=== PATIENT | female | born 1995 | race Two or more races ===

== ENCOUNTER 2024-08-01 17:47 | Emergency (ER) | payer MEDICAID, OTHER ==
[~2024-08-01] VITALS: Ht 160 cm; Wt 101.1 kg
[2024-08-01] MEDS: KETOROLAC TROMETH 60MG/2ML VIAL IM ONE (20:07)
[2024-08-01] MEDS: ONDANSETRON HCL 4 MG/2 ML VIAL IM ONE (20:31)
[2024-08-01 20:32] LABS: Basophils # (auto) 0.1 10 ^3/uL (0-0.2); Basophils % (auto) 0.7 % (0.0-2.0); Eosinophils # (auto) 0.1 10 ^3/uL (0-0.8); Eosinophils % (auto) 1.1 % (0.0-7.0); Hematocrit 41.4 % (36.0-46.0); Hemoglobin 13.7 g/dL (12.2-16.2); Lymphocytes # (auto) 2.7 10 ^3/uL (0.4-5.4); Lymphocytes % (auto) 22.1 % (10.0-50.0); Mean Corpuscular Hemoglobin 26.8 pg (28.0-32.0); Mean Corpuscular Hgb Conc. 33.1 g/dL (32.0-36.0); Mean Corpuscular Volume 80.9 fL (80.0-100.0); Monocytes # (auto) 0.6 10 ^3/uL (0-1.3); Monocytes % (auto) 4.7 % (0.0-12.0); Neutrophils # (auto) 8.9 10 ^3/uL (1.6-8.6); Neutrophils % (auto) 71.4 % (37.0-80.0); Platelet Count (auto) 351 10^3/uL (140-450); Red Blood Cells 5.12 10^6/uL (4.0-5.20); Red Cell Distribution Width 14.4 % (11.8-14.3); White Blood Cell 12.4 10^3/uL (4.4-10.8)
[2024-08-01 20:50] LABS: Alanine Aminotransferase 20 U/L (7-40); Albumin 4.8 g/dL (3.2-4.8); Alkaline Phosphatase 78 U/L (46-116); Anion Gap 8 (5-15); Aspartate Aminotransferase 16 U/L (13-40); BUN/Creatinine Ratio 12.7 (10.0-20.0); Bilirubin, Total 0.4 mg/dL (0.2-1.0); Blood Urea Nitrogen 10 mg/dL (9-23); Calcium 10.1 mg/dL (8.7-10.4); Carbon Dioxide 25 mmol/L (20-31); Chloride 104 mmol/L (98-107); Glucose 82 mg/dL (74-106); Potassium 4.2 mmol/L (3.5-5.1); Sodium 137 mmol/L (136-145)
--- NOTE | 2024-08-01 21:22 | DVH ---
CLINICAL INDICATION: injury/pain TECHNIQUE: 3 radiographic views of the right knee were obtained. Comparison: None FINDINGS/IMPRESSION: There is no evidence of acute fracture or dislocation. There is protuberance of the tibial tuberosity . Correlate for possible osteochondroma. The visualized joint space is well maintained. The alignment is anatomical. There is no radiopaque foreign body.
--- NOTE | 2024-08-01 21:41 | DVH ---
Exam: CT CT AB PEL WO CON-NO ORAL OR IV History: llq pain Comparison Study: None Technique: Multidetector spiral CT of the abdomen was performed from lung bases to pubic symphysis. Imaging was performed without IV contrast. Axial, coronal and sagittal multiplanar reformats were ob tained from the axial data set by the technologist. Radiation Dose : 1. Abdomen/Pelvis: CTDIvol 17 mGy, DLP 1037 mGy*cm. Findings: Evaluation of solid organs is limited due to lack of intravenous contrast use. Lung Bases: No acute or significant lung base finding. Normal heart size. No pleural or pericardial effusion. Liver: The liver is normal in size. No focal lesions. Gallbladder and Biliary Tree: Gallbladder is surgically absent. Spleen: Unremarkable Pancreas: The pancreas is grossly normal in appearance. Adrenal Glands: Unremarkable Kidneys: Kidneys are grossly normal without calculi or hydronephrosis. Bladder: Grossly unremarkable for degree of distention. Bowel: The stomach is grossly normal in appearance. Small bowel and colon are normal in caliber and d istribution. The appendix is not visualized; however, no secondary findings of acute appendicitis id entified. Ascites: Absent Lymphadenopathy: No mesenteric, retroperitoneal or periportal lymphadenopathy. Abdominal Wall and Mesentery: Unremarkable. Vasculature: The visualized abdominal aorta is normal in size and caliber. Evaluation of abdominal a nd pelvic vessels is limited due to lack of intravenous contrast. Pelvic Organs: Unremarkable Musculoskeletal: No aggressive focal bony lesions, acute fractures or dislocation. IMPRESSION: 1. No acute abdominal or pelvic findings. Radiation optimization: All CT scans at this facility use at least one of these dose optimization humberto hniques: automated exposure control mA and/or kV adjustment per patient size (includes targeted exam s where dose is matched to clinical indication) or iterative reconstruction.
[2024-08-01 21:42] LABS: Total Protein 8.6 g/dL (5.7-8.2)
[2024-08-01 21:45] LABS: Lipase 30 U/L (12-53)
[2024-08-01] MEDS: MORPHINE SULFATE INJ 2 MG/ml SYRG IM ONE (21:48)
[2024-08-01 22:19] VITALS: BP 104/74; PULSE 73; RESP 16; TEMP 98.6; O2SAT 100
--- NOTE | 2024-08-01 23:21 | DVH ---
INDICATION: INJURY/PAIN TECHNIQUE: 3 views of the lumbar spine were obtained. COMPARISON: None FINDINGS: There are no acute fractures or subluxations. Trace levoscoliosis has its apex about the L3 vertebral body. There is otherwise normal alignment of 5 nonrib lumbar vertebral bodies. Moderate to severe L5-S1 disc height loss with minimal adjacent end plate sclerosis. No evidence of fracture or subluxation. Soft tissue elements are normal in appearance. Nonobstructive bowel gas pattern noted. Right upper qu adrant surgical clips noted. IMPRESSION: 1. No acute fracture or subluxation. 2. Moderate to severe L5-S1 disc height loss with adjacent endplate sclerosis.
--- NOTE | 2024-08-02 00:07 | ED.PDOC ---
Leah. trauma (HPI) HPI Comments pt reports slip and fall, hitting back of head, back and right leg. pt denies loc, associated with mild nausea. Chief Complaint: Fall Injury Time Seen by MD: 18:27 Primary Care Provider: none Reviewed notes: Nurses Notes, Medications, Allergies Allergies: Coded Allergies: NO KNOWN ALLERGIES (Unverified , 08/01/24) Information Source: Patient Mode of Arrival: Ambulatory Past Medical History PAST MEDICAL HISTORY: Denies Surgical History: Denies all surgeries ALUMINUM SIDING INSTALLER History: No Pertinent ALUMINUM SIDING INSTALLER History Family History Family History: Unknown Social History Smoker: Non-Smoker Alcohol: Denies ETOH Use Drugs: Denies Drug Use Constitutional: denies: chills, diaphoresis, fatigue, fever, malaise, sweats, weakness, others EENTM: denies: blurred vision, double vision, ear bleeding, ear discharge, ear drainage, ear pain, ear ringing, eye pain, eye redness, hearing loss, mouth pain, mouth swelling, nasal discharge, nose bleeding, nose congestion, nose p ain, photophobia, tearing, throat pain, throat swelling, voice changes, others Respiratory: denies: cough, hemoptysis, orthopnea, SOB at rest, shortness of breath, SOB with excertion, stridor, wheezing, others Cardiovascular: denies: chest pain, dizzy spells, diaphoresis, Dyspnea on exertion, edema, irregular heart beat, left arm pain, lightheadedness, palpitations, PND, syncope, others Gastrointestinal: reports: abdominal pain; denies: abdomen distended, blood streaked bowels, constipated, diarrhea, dysphagia, difficulty swallowing, hematemesis, melena, nausea, poor appetite, poor fluid intake, rectal bleeding, rectal pain, vomiting, others Genitourinary: denies: abnormal vagina bleeding, burning, dyspareunia, dysuria, flank pain, frequency, hematuria, incontinence, pain, , vagina discharge, urgency, others Neurological: denies: dizziness, fainting, headache, left sided numbness, left sided weakness, numbness, paresthesia, pre-existing deficit, right sided numbness, right sided weakness, seizure, speech problems, tingling, tremors, weakness, others Musculoskeletal: reports: back pain, others (RIGHT KNEE PAIN); denies: gout, joint pain, joint swelling, muscle pain, muscle stiffness, neck pain Integumetry: denies: bruises, change in color, change in hair/nails, dryness, laceration, lesions, lumps, rash, wounds, others Allergic/Immunocompromised: denies: Difficulty Healing, Frequent Infections, H susannah, Itching, others Hematologic/Lymphatic: denies: anemia, blood clots, easy bleeding, easy bruising, swollen glands, others Endocrine: denies: excessive hunger, excessive sweating, excessive thirst, excessive urination, flushing, intolerance to cold, intolerance to heat, unexplained weight gain, unexplained weight loss, others Psychiatric: denies: anxiety, bipolar disorder, depression, hopeless, panic disorder, schizophrenia, sleepless, suicidal, others Physical Exam General Appearance: No Apparent Distress, Normal HEENT: Normal ENT Inspection, Pharynx Normal Neck: Full Range of Motion, Non-Tender Respiratory: Chest Non-Tender, Lungs Clear, No Respiratory Distress, Normal Breath Sounds Cardiovascular: No Edema, No JVD, No Murmur, No Gallop, Normal Peripheral Pulses, Regular Rate/Rhythm Breast Exam: Deferred Gastrointestinal: No Organomegaly, Non Tender, No Pulsatile Mass, Normal Bowel Sounds, Soft Genitalia: Deferred Pelvic: Deferred Rectal: Deferred Extremities: Normal capillary refill, Normal inspection, Normal range of motion, Non-tender, No pedal edema Musculoskeletal : Location: Bilateral Extremity Location: Back (10 PALPATED OVER L1 THROUGH L5 PARASPINAL MUSCLES LEFT SIDE GREATER THAN RIGHT NO NOTED CREPITUS OR STEP-OFFS STRENGTH SENSORY MOTION INTACT NEGATIVE STRAIGHT LEG RAISE BILATERAL POSITIVE PEDAL PULSES. 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 Was a procedure done?: No Differential Diagnosis Multiple Trauma: Fractures, Spine Injury, Contusion, Hematoma, Laceration X-Ray, Labs, Meds, VS Vital Signs Date Time Temp Pulse Resp B/P (MAP) Pulse Ox O2 Delivery O2 Flow Rate FiO2 08/01/24 22:19 98.6 73 16 104/74 (84) 100 98.6 08/01/24 22:18 73 16 104/74 08/01/24 21:48 80 16 109/64 08/01/24 21:12 97.5 80 16 109/64 (79) 97 97.5 08/01/24 19:05 98.5 104 18 128/73 (91) 96 98.5 08/01/24 19:05 104 18 96 Room Air 08/01/24 18:04 98.5 104 18 128/73 (91) 96 98.5 Lab Test 08/01/24 20:12 Range/Units White Blood Count 12.4 H 4.4-10.8 10^3/uL Red Blood Count 5.12 4.0-5.20 10^6/uL Hemoglobin 13.7 12.2-16.2 g/dL Hematocrit 41.4 36.0-46.0 % Mean Corpuscular Volume 80.9 80.0-100.0 fL Mean Corpuscular Hemoglobin 26.8 L 28.0-32.0 pg Mean Corpuscular Hemoglobin Concent 33.1 32.0-36.0 g/dL Red Cell Distribution Width 14.4 H 11.8-14.3 % Platelet Count 351 140-450 10^3/uL Mean Platelet Volume 8.2 6.9-10.8 fL Neutrophils (%) (Auto) 71.4 37.0-80.0 % Lymphocytes (%) (Auto) 22.1 10.0-50.0 % Monocytes (%) (Auto) 4.7 0.0-12.0 % Eosinophils (%) (Auto) 1.1 0.0-7.0 % Basophils (%) (Auto) 0.7 0.0-2.0 % Neutrophils # (Auto) 8.9 H 1.6-8.6 10 ^3/uL Lymphocytes # (Auto) 2.7 0.4-5.4 10 ^3/uL Monocytes # (Auto) 0.6 0-1.3 10 ^3/uL Eosinophils # (Auto) 0.1 0-0.8 10 ^3/uL Basophils # (Auto) 0.1 0-0.2 10 ^3/uL Nucleated Red Blood Cells 0.0 % Sodium Level 137 136-145 mmol/L Potassium Level 4.2 3.5-5.1 mmol/L Chloride Level 104 98-107 mmol/L Carbon Dioxide Level 25 20-31 mmol/L Anion Gap 8 5-15 Blood Urea Nitrogen 10 9-23 mg/dL Creatinine 0.79 0.550-1.02 mg/dL Glomerular Filtration Rate Calc 104 >90 mL/min BUN/Creatinine Ratio 12.7 10.0-20.0 Serum Glucose 82 74-106 mg/dL Calcium Level 10.1 8.7-10.4 mg/dL Total Bilirubin 0.4 0.2-1.0 mg/dL Aspartate Amino Transferase (AST) 16 13-40 U/L Alanine Aminotransferase (ALT) 20 7-40 U/L Alkaline Phosphatase 78 46-116 U/L Total Protein 8.6 H 5.7-8.2 g/dL Albumin 4.8 3.2-4.8 g/dL Lipase 30 12-53 U/L X-Ray, Labs, Meds, VS Comment PATIENT GIVEN MORPHINE 1 MG IM, TORADOL 60 MG IM, AND ZOFRAN 4 MG P.O.. REPORTS IMPROVEMENT SYMPTOMS REQUESTING DISCHARGE AT THIS TIME. CT ABDOMEN PELVIS NEGATIVE FOR ACUTE FINDINGS. LUMBAR X-RAY SHOWS NO FRACTURES, OSSEOUS LESIONS, OR SUBLUXATIONS. RIGHT KNEE SHOWS NO DISLOCATION, FRACTURES OR OSSEOUS LESIONS. PATIENT TO FOLLOW UP HER PCP IN 2-3 DAYS CONSIDER FURTHER IMAGING SUCH MRIS IF SYMPTOMS PERSIST. DISCUSSED RETURN ER PRECAUTIONS PATIENT INDICATES UNDERSTANDING AGREES WITH DISCHARGE PLAN OF CARE. Time of 1ST Reevaluation: 00:02 Reevaluation 1ST: Improved Patient Education/Counseling: Diagnosis, Treatment, Prognosis, Need For Follow Up Family Education/Counseling: No Family Present Departure 1 Departure Time of Disposition: 00:05 Impression: Primary Impression: Low back strain Qualified Codes: S39.012A - Strain of muscle, fascia and tendon of lower back, initial encounter Additional Impressions: Abdominal pain Qualified Codes: R10.84 - Generalized abdominal pain Contusion of right knee Qualified Codes: S80.01XA - Contusion of right knee, initial encounter Disposition: HOME / SELF CARE / HOMELESS Condition: Stable Discharged With: Friend Critical Care Note Critical Care Time?: No Stability Stability form required: PATTIE Greenwood Aug 02, 2024 00:07
== END 2024-08-02 00:20 | disposition home or self-care (01) ==
LOC: ER 17:47
DX: S39.012A Strain of muscle, fascia and tendon of lower back, initial encounter (principal); S80.01XA Contusion of right knee, initial encounter; R10.9 Unspecified abdominal pain; W01.198A Fall on same level from slipping, tripping and stumbling with subsequent striking against other object, initial encounter; Y93.89 Activity, other specified; Y92.89 Other specified places as the place of occurrence of the external cause; Y99.8 Other external cause status
CPT/HCPCS: 36415; 72100; 73562; 74176; 80053; 83690; 85025; 96372; 99285; J1885; J2270; J2405

== ENCOUNTER 2024-11-05 17:43 | Emergency (ER) | payer MEDICAID ==
--- NOTE | 2024-11-05 18:03 | ECG ---
[facility] Test Date: 2024-11-05 Test Time: 17:50:26 Pat Name: SCOTTY DAVIS Department: ER Room: Gender: F Director Of Media: MARY : 1995 Requested By: CLAUDIA DE SOUZA Order Number: [id number] Reading MD: Albino Solorzano Measurements Intervals Nixon Rate: 91 P: 48 MS: 168 QRS: 45 QRSD: 89 T: 8 QT: 340 QTc: 419 Interpretive Statements Sinus rhythm Borderline Q waves in inferior leads Electronically Signed On 11-08-2024 20:02:35 PDT by Albino Solorzano Please click the below link to view image of tracing.
[2024-11-05 18:08] LABS: Urine Bacteria None Seen /hpf (None Seen)
[2024-11-05 18:12] LABS: Basophils # (auto) 0.1 10 ^3/uL (0-0.2); Eosinophils # (auto) 0.3 10 ^3/uL (0-0.8); Monocytes # (auto) 0.6 10 ^3/uL (0-1.3); Monocytes % (auto) 5.6 % (0.0-12.0); Nucleated Red Blood Cells % 0.1 %
[2024-11-05 18:14] LABS: Basophils % (auto) 1.1 % (0.0-2.0); Eosinophils % (auto) 2.7 % (0.0-7.0); Hematocrit 40.5 % (36.0-46.0); Hemoglobin 13.8 g/dL (12.2-16.2); Lymphocytes # (auto) 2.9 10 ^3/uL (0.4-5.4); Mean Corpuscular Hemoglobin 27.1 pg (28.0-32.0); Mean Corpuscular Hgb Conc. 34.2 g/dL (32.0-36.0); Mean Corpuscular Volume 79.3 fL (80.0-100.0); Neutrophils # (auto) 6.2 10 ^3/uL (1.6-8.6); Neutrophils % (auto) 61.6 % (37.0-80.0); Platelet Count (auto) 362 10^3/uL (140-450); Red Cell Distribution Width 14.1 % (11.8-14.3)
--- NOTE | 2024-11-05 18:19 | ED.PDOC ---
HPI Comments 29 y/o F, with no prior cardiac history presents to the ED for CC of chest pain. Patient states, she has been experiencing intermittent left sided chest pain onset, yesterday (11/04/24). Patient relays, associated symptoms of of nausea and vomiting with epigastric discomfort. Patient describes pain to be, underneath her breast. Patient denies change in diet, new prescriptions, palpitations, or shortness of breath. No other symptoms or modifying factors present at this time. Chief Complaint: Chest Pain Time Seen by MD: 18:15 Primary Care Provider: NONE Reviewed Notes: Nurses Notes, Medications, Allergies Allergies: Coded Allergies: NO KNOWN ALLERGIES (Unverified , 08/01/24) Information Source: Patient Mode of Arrival: Ambulatory Severity: Moderate Timing: Days Duration: Intermittent Prehospital treatment: None Location: Chest (L) Radiation: No Radiation Quality: Sharp Onset: At Rest Cardiac Risk Factors: None PE Risk Factors: None History of: None Modifying Factors: Nothing Associated Signs and Symptoms: Abdominal Pain, N/V Past Medical History PAST MEDICAL HISTORY: Denies Surgical History: Denies all surgeries HEALTH CARE LAW SPECIALIST History: No Pertinent HEALTH CARE LAW SPECIALIST History Family History Family History: Unknown Social History Smoker: Non-Smoker Alcohol: Denies ETOH Use Drugs: Denies Drug Use Lives In: Home Constitutional: denies: chills, diaphoresis, fatigue, fever, malaise, sweats, weakness, others EENTM: denies: blurred vision, double vision, ear bleeding, ear discharge, ear drainage, ear pain, ear ringing, eye pain, eye redness, hearing loss, mouth pain, mouth swelling, nasal discharge, nose bleeding, nose congestion, nose pain, photophobia, tearing, throat pain, throat swelling, voice changes, others Respiratory: denies: cough, hemoptysis, orthopnea, SOB at rest, shortness of breath, SOB with excertion, stridor, wheezing, others Cardiovascular: reports: chest pain; denies: dizzy spells, diaphoresis, Dyspnea on exertion, edema, irregular heart beat, left arm pain, lightheadedness, palpitations, PND, syncope, others Gastrointestinal: reports: abdominal pain, nausea, vomiting; denies: abdomen distended, blood streaked bowels, constipated, diarrhea, dysphagia, difficulty swallowing, hematemesis, melena, poor appetite, poor fluid intake, rectal bleeding, rectal pain, others Genitourinary: denies: abnormal vagina bleeding, burning, dyspareunia, dysuria, flank pain, frequency, hematuria, incontinence, pain, , vagina discharge, urgency, others Neurological: denies: dizziness, fainting, headache, left sided numbness, left sided weakness, numbness, paresthesia, pre-existing deficit, right sided numbness, right sided weakness, seizure, speech problems, tingling, tremors, weakness, others Musculoskeletal: denies: back pain, gout, joint pain, joint swelling, muscle pain, muscle stiffness, neck pain, others Integumetry: denies: bruises, change in color, change in hair/nails, dryness, laceration, lesions, lumps, rash, wounds, others Allergic/Immunocompromised: denies: Difficulty Healing, Frequent Infections, Hives, Itching, others Hematologic/Lymphatic: denies: anemia, blood clots, easy bleeding, easy bruising, swollen glands, others Endocrine: denies: excessive hunger, excessive sweating, excessive thirst, excessive urination, flushing, intolerance to cold, intolerance to heat, unexplained weight gain, unexplained weight loss, others Psychiatric: denies: anxiety, bipolar disorder, depression, hopeless, panic disorder, schizophrenia, sleepless, suicidal, others All Other Systems: Reviewed and Negative Physical Exam General Appearance: No Apparent Distress, Normal HEENT: Normal ENT Inspection, Pharynx Normal, TMs Normal Neck: Full Range of Motion, Non-Tender, Normal, Normal Inspection Respiratory: Chest Non-Tender, Lungs Clear, No Accessory Muscle Use, No Respiratory Distress, Normal Breath Sounds Cardiovascular: No Edema, No JVD, No Murmur, No Gallop, Normal Peripheral Pulses, Regular Rate/Rhythm Breast Exam: Deferred Gastrointestinal: No Organomegaly, Non Tender, No Pulsatile Mass, Normal Bowel Sounds, Soft Genitalia: Deferred Pelvic: Deferred Rectal: Deferred Extremities: No calf tenderness, Normal capillary refill, Normal inspection, Normal range of motion, Non-tender, No pedal edema Musculoskeletal : Apperance: Normal 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 Was a procedure done?: No CP Differential Dx Differential Diagnosis: Anxiety / Panic Attack Differential Diagnosis: Chest Wall Pain, Costochondritis, Esophageal reflux/spasm, Gastritis, Pneumonia X-Ray, Labs, Meds, VS Vital Signs Date Time Temp Pulse Resp B/P (MAP) Pulse Ox O2 Delivery O2 Flow Rate FiO2 11/05/24 17:50 91 11/05/24 17:45 98.1 93 18 121/62 (81) 100 98.1 Lab Test 11/05/24 19:00 11/05/24 18:02 11/05/24 17:54 Range/Units Troponin I High Sensitivity < 3 L < 3 L </=34 ng/L White Blood Count 10.0 4.4-10.8 10^3/uL Red Blood Count 5.10 4.0-5.20 10^6/uL Hemoglobin 13.8 12.2-16.2 g/dL Hematocrit 40.5 36.0-46.0 % Mean Corpuscular Volume 79.3 L 80.0-100.0 fL Mean Corpuscular Hemoglobin 27.1 L 28.0-32.0 pg Mean Corpuscular Hemoglobin Concent 34.2 32.0-36.0 g/dL Red Cell Distribution Width 14.1 11.8-14.3 % Platelet Count 362 140-450 10^3/uL Mean Platelet Volume 8.4 6.9-10.8 fL Neutrophils (%) (Auto) 61.6 37.0-80.0 % Lymphocytes (%) (Auto) 29.0 10.0-50.0 % Monocytes (%) (Auto) 5.6 0.0-12.0 % Eosinophils (%) (Auto) 2.7 0.0-7.0 % Basophils (%) (Auto) 1.1 0.0-2.0 % Neutrophils # (Auto) 6.2 1.6-8.6 10 ^3/uL Lymphocytes # (Auto) 2.9 0.4-5.4 10 ^3/uL Monocytes # (Auto) 0.6 0-1.3 10 ^3/uL Eosinophils # (Auto) 0.3 0-0.8 10 ^3/uL Basophils # (Auto) 0.1 0-0.2 10 ^3/uL Nucleated Red Blood Cells 0.1 % Sodium Level 138 136-145 mmol/L Potassium Level 4.1 3.5-5.1 mmol/L Chloride Level 105 98-107 mmol/L Carbon Dioxide Level 25 20-31 mmol/L Anion Gap 8 5-15 Blood Urea Nitrogen 12 9-23 mg/dL Creatinine 0.77 0.550-1.02 mg/dL Glomerular Filtration Rate Calc 108 >90 mL/min BUN/Creatinine Ratio 15.6 10.0-20.0 Serum Glucose 93 74-106 mg/dL Calcium Level 9.3 8.7-10.4 mg/dL Lipase 29 12-53 U/L Urine Color Yellow Yellow Urine Clarity Turbid H Clear Urine pH 5.0 5.0-9.0 Urine Specific Slaughters 1.028 1.001-1.035 Urine Protein Negative Negative Urine Ketones Negative Negative Urine Blood Trace H Negative /uL Urine Nitrite Negative Negative Urine Bilirubin Negative Negative Urine Urobilinogen Normal Negative mg/dL Urine Leukocyte Esterase 2+ Negative /uL Urine RBC 2 0 - 4 /hpf Urine Microscopic WBC 6 H 0-5 /HPF Urine Squamous Epithelial Cells Mod <5 /hpf Urine Bacteria None seen None Seen /hpf Urine Mucus Few None Seen Urine Glucose Normal Normal mg/dL Urine Test Negative Negative X-Ray, Labs, Meds, VS Comment Imaging: X-rays and CT scans were reviewed and interpreted by this provider, imaging shows no fractures and no pathological disease. Pending radiology review. Laboratory: Labs reviewed and interpreted by this provider. Patient has blood and leukocytes in her urine. With GI symptoms. Concerned for possible urinary tract infection, patient be treated with Macrobid. Patient has prior medical visits reviewed. Med reconciliation performed Vital signs reviewed Time of 1ST Reevaluation: 18:45 Reevaluation 1ST: Unchanged Patient Education/Counseling: Diagnosis, Treatment, Need For Follow Up (Follow up in the emergency department in the next 24-48 hours if symptoms worsen. It was advised to follow up with your primary care doctor in the next 3-4 days for further evaluation.) Family Education/Counseling: No Family Present SEPSIS Sepsis Screen Date sepsis recognized/suspect: Nov 05, 2024 Time Sepsis recognized/suspect: 1744 Recent Procedure: No On Antibiotic Therapy: No Respiratory Rate >20: No Heart Rate >90: Yes Temp<36 C (96.8 F) or >38.3 C: No SBP <90 or MAP <65 mmHG: No New Acute Mental Status Change: No Is the patient on CPAP, BIPAP,: No Physician Orders Ct Ab Pel Wo Con-No Oral Or Iv (11/05/24 17:59) Chest Xray 1 View (11/05/24 17:59) Troponin-I Hs (11/05/24 20:59) Vital Signs Date Time Temp Pulse Resp B/P (MAP) Pulse Ox O2 Delivery O2 Flow Rate FiO2 11/05/24 17:50 91 11/05/24 17:45 98.1 93 18 121/62 (81) 100 98.1 Laboratory Tests Test 11/05/24 18:02 White Blood Count 10.0 10^3/uL (4.4-10.8) Departure 1 Departure Time of Disposition: 19:47 Impression: Primary Impression: Urinary tract infection Qualified Codes: N30.00 - Acute cystitis without hematuria Additional Impression: Chest wall pain Disposition: HOME / SELF CARE / HOMELESS Condition: Fair e-Prescriptions Nitrofurantoin Monohydrate Mac (Macrobid) 100 Mg Cap 100 MG PO BID for 7 Days, #14 CAP Prov: CLAUDIA DE SOUZA 11/05/24 Discharged With: Self Critical Care Note Critical Care Time?: No Stability Stability form required: No Heart Score Heart Score: Heart Score Response (Comments) Value History N/A 0 EKG N/A 0 Age N/A 0 Risk Factors N/A 0 Troponin N/A 0 Total 0 I personally scribed for CLAUDIA DE SOUZA ([email or web address]) on 11/05/24 at 18:19. Electronically submitted by Rakel Reddy ([email or web address]). CLAUDIA DE SOUZA Nov 05, 2024 18:19
[2024-11-05 18:21] LABS: Chloride 105 mmol/L (98-107); Potassium 4.1 mmol/L (3.5-5.1); Sodium 138 mmol/L (136-145)
[2024-11-05 18:22] LABS: Anion Gap 8 (5-15); Calcium 9.3 mg/dL (8.7-10.4); Carbon Dioxide 25 mmol/L (20-31)
[2024-11-05 18:23] LABS: Urine Blood TRACE /uL (Negative); Urine Clarity Turbid (Clear); Urine Color Yellow (Yellow); Urine Mucus FEW (None Seen); Urine Protein, UAD Negative (Negative); Urine Specific Gravity 1.028 (1.001-1.035); Urine Squamous Epithelial Cell MOD /hpf (<5); Urine Urobilinogen Normal (Negative); Urine WBC 6 /HPF (0-5)
[2024-11-05 18:27] LABS: BUN/Creatinine Ratio 15.6 (10.0-20.0); Blood Urea Nitrogen 12 mg/dL (9-23); Glucose 93 mg/dL (74-106)
[2024-11-05 18:28] LABS: Lipase 29 U/L (12-53)
--- NOTE | 2024-11-05 19:03 | DVH ---
Exam: CT CT AB PEL WO CON-NO ORAL OR IV History: abd pain Comparison Study: CT CT AB PEL WO CON-NO ORAL OR IV on DOS: 08/01/24 Technique: Multidetector spiral CT of the abdomen was performed from lung bases to pubic symphysis. Imaging was performed without IV contrast. Axial, coronal and sagittal multiplanar reformats were ob tained from the axial data set by the technologist. Radiation Dose : 1. Abdomen/Pelvis: CTDIvol 26.75 mGy, DLP 1511.1 mGy*cm. Findings: Evaluation of solid organs is limited due to lack of intravenous contrast use. Lung Bases: No acute or significant lung base finding. Normal heart size. No pleural or pericardial effusion. Liver: The liver is normal in size. No focal lesions. Gallbladder and Biliary Tree: Gallbladder is surgically absent. Spleen: Unremarkable Pancreas: The pancreas is grossly normal in appearance. Adrenal Glands: Unremarkable Kidneys: Kidneys are grossly normal without calculi or hydronephrosis. Bladder: Grossly unremarkable for degree of distention. Bowel: The stomach is grossly normal in appearance. Small bowel and colon are normal in caliber and d istribution. The appendix is not visualized; however, no secondary findings of acute appendicitis id entified. Ascites: Absent Lymphadenopathy: No mesenteric, retroperitoneal or periportal lymphadenopathy. Abdominal Wall and Mesentery: Unremarkable. Vasculature: The visualized abdominal aorta is normal in size and caliber. Evaluation of abdominal a nd pelvic vessels is limited due to lack of intravenous contrast. Pelvic Organs: Unremarkable Musculoskeletal: No aggressive focal bony lesions, acute fractures or dislocation. IMPRESSION: 1. No acute abdominal or pelvic findings. Radiation optimization: All CT scans at this facility use at least one of these dose optimization humberto hniques: automated exposure control mA and/or kV adjustment per patient size (includes targeted exam s where dose is matched to clinical indication) or iterative reconstruction.
--- NOTE | 2024-11-05 19:04 | DVH ---
EXAMINATION: Chest x-ray 1 view CLINICAL HISTORY: cp COMPARISON: None FINDINGS: No dominant consolidations in the visualized lung story. The costophrenic angles appear clear. No s izable pleural effusion or pneumothorax. The cardiomediastinal silhouette appears within normal limit s given technique. IMPRESSION: No acute cardiopulmonary findings as visualized.
[2024-11-05] MEDS ORDERED: NITR-87 PO (19:48)
[2024-11-05 20:13] VITALS: BP 115/60; PULSE 85; RESP 18; TEMP 97.8; O2SAT 98
[2024-11-05] MEDS: KETOROLAC TROMETH 30 MG/ML 1ML VIAL IV ONE (20:34)
[2024-11-05] MEDS: ONDANSETRON ODT 4 MG TAB PO ONE (20:34)
== END 2024-11-05 21:08 | disposition home or self-care (01) ==
LOC: ER 17:43
DX: N39.0 Urinary tract infection, site not specified (principal); R07.89 Other chest pain
CPT/HCPCS: 36415; 71045; 74176; 80048; 81001; 81025; 83690; 84484; 85025; 93005; 96374; 99285; J1885; Q0162

== ENCOUNTER 2024-11-15 22:41 | Emergency (ER) | payer MEDICAID ==
[~2024-11-15] VITALS: Ht 160 cm; Wt 100.7 kg
[~2024-11-15 22:41] MED LIST: NITR-87 PO
[2024-11-15] MEDS: ONDANSETRON HCL 4 MG/2 ML VIAL IM ONE (23:56)
[2024-11-15] MEDS: HYDROcodone-ACET 10/325MG TAB PO ONE (23:56)
[2024-11-15] MEDS: KETOROLAC TROMETH 60MG/2ML VIAL IM ONE (23:56)
[2024-11-15 23:59] LABS: Urine Protein, UAD Negative (Negative)
--- NOTE | 2024-11-16 00:07 | ED.PDOC ---
General HPI Comments This patient is a severely morbidly obese 29-year-old female who came to ER for flank pain concerns. Patient has been having intermittent episodes of aching right flank pains, nonradiating, associated nausea and vomiting for the past 3 days. Denies any urinary symptoms such as dysuria or gross hematuria. Denies any fever. Denies any history of intra-abdominal concerns or musculoskeletal issues. Vital signs were stable on arrival. Chief Complaint: Flank Pain Time Seen by MD: 00:06 Primary Care Provider: NONE Reviewed notes: Nurses Notes Allergies: Coded Allergies: Sulfamethoxazole w/Trimethoprim (Verified Allergy, Unknown, 11/15/24) Home Meds Active Scripts Nitrofurantoin Monohydrate Mac (Macrobid) 100 Mg Cap, 100 MG PO BID for 7 Days, #14 CAP Prov:CLAUDIA DE SOUZA 11/05/24 Information Source: Patient Mode of Arrival: Ambulatory Severity: Moderate Inability to void: Mild Timing: Days Duration: Intermittent Has not urinated for: Minutes Prehospital treatment: None Onset: Spontaneous Symptoms: None History of: None Location: (R) Flank associated signs and symptoms: Nausea, Vomiting, Flank Pain Past Medical History PAST MEDICAL HISTORY: Denies Surgical History: Denies all surgeries CARD SCRAPER History: No Pertinent CARD SCRAPER History Family History Family History: Reviewed,noncontributory to illness Social History Smoker: Non-Smoker Alcohol: Denies ETOH Use Drugs: Denies Drug Use Lives In: Home Constitutional: denies: chills, diaphoresis, fatigue, fever, malaise, sweats, weakness, others EENTM: denies: blurred vision, double vision, ear bleeding, ear discharge, ear drainage, ear pain, ear ringing, eye pain, eye redness, hearing loss, mouth pain, mouth swelling, nasal discharge, nose bleeding, nose congestion, nose pain, photophobia, tearing, throat pain, throat swelling, voice changes, others Respiratory: denies: cough, hemoptysis, orthopnea, SOB at rest, shortness of breath, SOB with excertion, stridor, wheezing, others Cardiovascular: denies: chest pain, dizzy spells, diaphoresis, Dyspnea on exertion, edema, irregular heart beat, left arm pain, lightheadedness, palpitations, PND, syncope, others Gastrointestinal: reports: nausea, vomiting; denies: abdomen distended, abdominal pain, blood streaked bowels, constipated, diarrhea, dysphagia, difficulty swallowing, hematemesis, melena, poor appetite, poor fluid intake, rectal bleeding, rectal pain, others Genitourinary: reports: flank pain (Right); denies: abnormal vagina bleeding, burning, dyspareunia, dysuria, frequency, hematuria, incontinence, pain, , vagina discharge, urgency, others Neurological: denies: dizziness, fainting, headache, left sided numbness, left sided weakness, numbness, paresthesia, pre-existing deficit, right sided numbness, right sided weakness, seizure, speech problems, tingling, tremors, weakness, others Musculoskeletal: denies: back pain, gout, joint pain, joint swelling, muscle pain, muscle stiffness, neck pain, others Integumetry: denies: bruises, change in color, change in hair/nails, dryness, laceration, lesions, lumps, rash, wounds, others Allergic/Immunocompromised: denies: Difficulty Healing, Frequent Infections, Hives, Itching, others Hematologic/Lymphatic: denies: anemia, blood clots, easy bleeding, easy bruising, swollen glands, others Endocrine: denies: excessive hunger, excessive sweating, excessive thirst, excessive urination, flushing, intolerance to cold, intolerance to heat, unexplained weight gain, unexplained weight loss, others Psychiatric: denies: anxiety, bipolar disorder, depression, hopeless, panic disorder, schizophrenia, sleepless, suicidal, others Physical Exam General Appearance: Moderate Distress (Moderate distress due to flank pain and nausea concerns.), Normal HEENT: Normal ENT Inspection, Pharynx Normal, TMs Normal Neck: Full Range of Motion, Non-Tender, Normal, Normal Inspection Respiratory: Chest Non-Tender, Lungs Clear, No Accessory Muscle Use, No Respiratory Distress, Normal Breath Sounds Cardiovascular: No Edema, No JVD, No Murmur, No Gallop, Normal Peripheral Pul ses, Regular Rate/Rhythm Breast Exam: Deferred Gastrointestinal: No Pulsatile Mass, Normal Bowel Sounds, Soft, Tenderness (Diffuse right-sided pain extending from the flank region into the abdomen. Difficult to assess due to body habitus. No definitive CVA tenderness.) Genitalia: Deferred Pelvic: Deferred Rectal: Deferred Extremities: No calf tenderness, Normal capillary refill, Normal inspection, Normal range of motion, Non-tender, No pedal edema Musculoskeletal : Apperance: Normal Neurologic: Alert, No Motor Deficits, Normal Affect, Normal Mood, No Sensory Deficits Cerebellar Function: Normal Reflexes: Normal Skin: Dry, Normal Color, Warm Lymphatic: No Adenopathy Was a procedure done? Was a procedure done?: No Differential Diagnosis Kidney stone (Female): Musculoskeletal pain, Pancreatitis, Pyelonephritis, Renal failure, Strain, Urinary obstruction, Urolithiasis Urinary Problem (Female): Pyelonephritis, Urinary retention, Urolithiasis, UTI X-Ray, Labs, Meds, VS Vital Signs Date Time Temp Pulse Resp B/P (MAP) Pulse Ox O2 Delivery O2 Flow Rate FiO2 11/16/24 02:11 57 17 134/81 11/16/24 01:00 98.6 57 17 134/81 (98) 100 98.6 11/15/24 23:50 98.6 86 18 129/74 (92) 100 98.6 11/15/24 23:50 Room Air* 0 21 11/15/24 23:25 98.6 86 18 129/74 (92) 100 98.6 Lab Test 11/15/24 23:48 Range/Units Urine Color Light-yellow Yellow Urine Clarity Clear Clear Urine pH 6.0 5.0-9.0 Urine Specific [place] 1.029 1.001-1.035 Urine Protein Negative Negative Urine Ketones Negative Negative Urine Blood Trace H Negative /uL Urine Nitrite Negative Negative Urine Bilirubin Negative Negative Urine Urobilinogen Normal Negative mg/dL Urine Leukocyte Esterase Trace Negative /uL Urine RBC 5 0 - 4 /hpf Urine Microscopic WBC 2 0-5 /HPF Urine Squamous Epithelial Cells Few <5 /hpf Urine Bacteria None seen None Seen /hpf Urine Mucus Few None Seen Urine Glucose Normal Normal mg/dL Urine Test Negative Negative Current Medications Medications (Trade) Dose Ordered Sig/Arlene Route Start Time Stop Time Status Last Admin Ketorolac Tromethamine (Toradol Injection) 30 mg ONCE ONCE IM 11/15/24 23:45 11/15/24 23:46 DC 11/15/24 23:56 Acetaminophen/ Hydrocodone Bitart (Sabin 10/325MG Tab) 1 tab ONCE ONCE PO 11/15/24 23:45 11/15/24 23:46 DC 11/15/24 23:56 Ondansetron HCl (Zofran) 4 mg ONCE ONCE IM 11/15/24 23:45 11/15/24 23:46 DC 11/15/24 23:56 Metoclopramide HCl (Reglan Injection) 10 mg ONCE ONCE IM 11/16/24 02:00 11/16/24 02:01 DC 11/16/24 02:11 Hydromorphone HCl (Dilaudid Injection) 1 mg ONCE ONCE IM 11/16/24 02:00 11/16/24 02:01 DC 11/16/24 02:11 X-Ray, Labs, Meds, VS Comment All studies performed in the ED were evaluated by me personally. Urinalysis was unremarkable for any urinary tract concerns. CT of the abdomen and pelvis was unremarkable for any acute abnormality. Mild hepatosplenomegaly was noted. Advised patient to utilize medication as needed and additionally, follow up with the primary care provider if symptoms continue. Time of 1ST Reevaluation: 02:24 Reevaluation 1ST: Improved Consultation: PCP, GI Patient Education/Counseling: Diagnosis, Treatment Family Education/Counseling: Diagnosis, Treatment, No Family Present SEPSIS Sepsis Screen Date sepsis recognized/suspect: Nov 15, 2024 Time Sepsis recognized/suspect: 2320 Recent Procedure: No On Antibiotic Therapy: No Respiratory Rate >20: No Heart Rate >90: No Temp<36 C (96.8 F) or >38.3 C: No SBP <90 or MAP <65 mmHG: No New Acute Mental Status Change: No Is the patient on CPAP, BIPAP,: No Physician Orders Ct Ab Pel Wo Con-No Oral Or Iv (11/15/24 23:40) Vital Signs Date Time Temp Pulse Resp B/P (MAP) Pulse Ox O2 Delivery O2 Flow Rate FiO2 11/16/24 02:11 57 17 134/81 11/16/24 01:00 98.6 57 17 134/81 (98) 100 98.6 11/15/24 23:50 98.6 86 18 129/74 (92) 100 98.6 11/15/24 23:50 Room Air* 0 21 11/15/24 23:25 98.6 86 18 129/74 (92) 100 98.6 Medications Medications Dose Ordered Sig/Arlene Route Start Time Stop Time Status Last Admin Dose Admin Acetaminophen/ Hydrocodone Bitart 1 tab ONCE ONCE PO 11/15/24 23:45 11/15/24 23:46 DC 11/15/24 23:56 Hydromorphone HCl 1 mg ONCE ONCE IM 11/16/24 02:00 11/16/24 02:01 MO 11/16/24 02:11 Ketorolac Tromethamine 30 mg ONCE ONCE IM 11/15/24 23:45 11/15/24 23:46 MO 11/15/24 23:56 Metoclopramide HCl 10 mg ONCE ONCE IM 11/16/24 02:00 11/16/24 02:01 MO 11/16/24 02:11 Ondansetron HCl 4 mg ONCE ONCE IM 11/15/24 23:45 11/15/24 23:46 MO 11/15/24 23:56 Departure 1 Departure Time of Disposition: 02:24 Impression: Primary Impression: Flank pain Disposition: HOME / SELF CARE / HOMELESS Condition: Stable Additional Instructions: Advised pain medication as needed for symptomatic relief as well as good hydration and healthy nutrition throughout. If symptoms continue, patient should follow up with the primary care provider for re-evaluation. e-Prescriptions Metoclopramide Hcl (Reglan) 10 Mg Tab 10 MG PO Q8HP PRN, #15 TAB Prov: ELENI FELIZ PAC 11/16/24 Ibuprofen Micronized (Ibuprofen) 800 Mg Tab 800 MG PO Q8HP PRN, #20 TAB Prov: ELENI FELIZ PAC 11/16/24 Discharged With: Self, Friend Critical Care Note Critical Care Time?: No Stability Stability form required: No Heart Score Heart Score: Heart Score Response (Comments) Value History N/A 0 EKG N/A 0 Age N/A 0 Risk Factors N/A 0 Troponin N/A 0 Total 0 I personally scribed for ELENI FELIZ PAC ([email or web address]) on 11/16/24 at 00:06. Electronically submitted by Isaiah Poole ([email or web address]). ELENI FELIZ PAC Nov 16, 2024 00:06
[2024-11-16 01:00] VITALS: TEMP 98.6
--- NOTE | 2024-11-16 01:59 | DVH ---
CLINICAL HISTORY: Right-sided flank pain TECHNIQUE: CT of the abdomen and pelvis was performed without intravenous contrast. This exam was per formed according to our departmental dose optimization program. Up-to-date CT equipment and radiation dose reduction techniques are utilized as appropriate. CTDI: 16.21 + 0.14 DLP: 1000.02 WID: COMPARISON: CT CT AB PEL WO CON-NO ORAL OR IV on DOS: 11/05/24, FINDINGS: Lower Thorax: Unremarkable. Liver and Biliary system: Mild hepatomegaly measuring 19 cm craniocaudal. Prior cholecystectomy. No d efinite hepatic lesion. No biliary ductal dilatation. Spleen: Mild splenomegaly. Adrenal Glands and Kidneys: Unremarkable. Pancreas and Retroperitoneum: Unremarkable. Aorta and Major Vessels: Unremarkable. Bowel, Mesentery and Peritoneal space: Unremarkable. Pelvis: Unremarkable. Abdominal wall and Osseous Structures: Minor Multilevel lower thoracic and lumbar spondylosis. No emilia tructive osseous lesion. IMPRESSION: No noncontrast evidence of acute abnormality. Mild hepatosplenomegaly.
[2024-11-16] MEDS: METOCLOPRAMIDE HCL 5MG/ml INJ 2ml VIAL IM ONE (02:11)
[2024-11-16] MEDS: HYDROmorphone HCL 2 MG/ML VL/or syr IM ONE (02:11)
[2024-11-16] MEDS ORDERED: IBUP-1455 PO (02:26)
[2024-11-16] MEDS ORDERED: METO-281 PO (02:26)
[2024-11-16 02:30] VITALS: BP 138/76; PULSE 56; RESP 16; O2SAT 100
== END 2024-11-16 02:32 | disposition home or self-care (01) ==
LOC: ER 22:41
DX: R10.31 Right lower quadrant pain (principal); E66.01 Morbid (severe) obesity due to excess calories; Z88.2 Allergy status to sulfonamides; Z88.1 Allergy status to other antibiotic agents; Z79.899 Other long term (current) drug therapy; Z68.39 Body mass index [BMI] 39.0-39.9, adult
CPT/HCPCS: 74176; 81001; 81025; 96372; 99285; J1171; J1885; J2405; J2765

== ENCOUNTER 2024-12-09 14:30 | Emergency (ER) | payer MEDICAID ==
[~2024-12-09] VITALS: Ht 152.4 cm; Wt 100.3 kg
[~2024-12-09 14:30] MED LIST changes: +IBUP-1455 PO; +METO-281 PO
--- NOTE | 2024-12-09 14:46 | ED.PDOC ---
General HPI Comments 29-year-old female presents to the ED for the chief complaint of lumbosacral paraspinal back pain with the associated nausea vomiting and dizziness. Patient states that her pain started three days ago, after her last menstrual cycle patient states that she finished her last menstrual cycle before the pain began. Patient states that she was having a very heavy period and was passing clots. Patient states she was vomiting due to the pain. Denies history of chronic steroid use or history of osteoporosis Denies history of cancer Denies fevers chills night sweats nausea vomiting unintentional weight loss Denies abdominal tearing pain Denies syncope Denies urinary changes or urinary incontinence Denies numbness tingling of the groin her inner thigh Denies previous back procedures or surgeries Chief Complaint: Back Pain Time Seen by MD: 14:42 Primary Care Provider: NONE Reviewed notes: Nurses Notes, Medications, Allergies Allergies: Coded Allergies: Sulfamethoxazole w/Trimethoprim (Verified Allergy, Unknown, 11/15/24) Home Meds Active Scripts Ondansetron HCl (Ondansetron) 4 Mg Tab, 4 MG PO Q8HP PRN for 2 Days, #6 TAB 0 Refills Prov:DALLAS BLOUNT NP 12/09/24 Lidocaine (LIDODERM 5% TOPICAL PATCH) 1 Patch Ph, 1 PATCH TOP DAILY for 30 Days, #30 PATCH 0 Refills Prov:DALLAS BLOUNT NP 12/09/24 Methocarbamol (Methocarbamol) 500 Mg Tab, 500 MG PO Q8HP PRN for 10 Days, #30 TAB 0 Refills Prov:DALLAS BLOUNT NP 12/09/24 Ibuprofen (Ibuprofen) 600 Mg Tab, 1 TAB PO TID for 10 Days, #30 TAB 0 Refills Prov:DALLAS BLOUNT NP 12/09/24 Metoclopramide Hcl (Reglan) 10 Mg Tab, 10 MG PO Q8HP PRN, #15 TAB Prov:ELENI FELIZ PAC 11/16/24 Ibuprofen Micronized (Ibuprofen) 800 Mg Tab, 800 MG PO Q8HP PRN, #20 TAB Prov:ELENI FELIZ PAC 11/16/24 Nitrofurantoin Monohydrate Mac (Macrobid) 100 Mg Cap, 100 MG PO BID for 7 Days, #14 CAP Prov:CLAUDIA DE SOUZA 6/25/25 Information Source: Patient Mode of Arrival: Ambulatory Severity: Moderate Inability to void: Moderate Timing: Days Duration: Intermittent, Days Has not urinated for: Hours Prehospital treatment: None Onset: Other Symptoms: None History of: None Location: Other (Mid spine) Modifying factors: None associated signs and symptoms: Nausea, Vomiting Past Medical History PAST MEDICAL HISTORY: Denies Surgical History: Denies all surgeries CUSTOMS INSPECTOR History: No Pertinent CUSTOMS INSPECTOR History Family History Family History: Reviewed,noncontributory to illness Social History Smoker: Non-Smoker Alcohol: Denies ETOH Use Drugs: Denies Drug Use Lives In: Home Constitutional: denies: chills, diaphoresis, fatigue, fever, malaise, sweats, weakness, others EENTM: denies: blurred vision, double vision, ear bleeding, ear discharge, ear drainage, ear pain, ear ringing, eye pain, eye redness, hearing loss, mouth pain, mouth swelling, nasal discharge, nose bleeding, nose congestion, nose pain, photophobia, tearing, throat pain, throat swelling, voice changes, others Respiratory: denies: cough, hemoptysis, orthopnea, SOB at rest, shortness of breath, SOB with excertion, stridor, wheezing, others Cardiovascular: denies: chest pain, dizzy spells, diaphoresis, Dyspnea on exertion, edema, irregular heart beat, left arm pain, lightheadedness, palpitations, PND, syncope, others Gastrointestinal: denies: abdomen distended, abdominal pain, blood streaked bowels, constipated, diarrhea, dysphagia, difficulty swallowing, hematemesis, melena, nausea, poor appetite, poor fluid intake, rectal bleeding, rectal pain, vomiting, others Genitourinary: denies: abnormal vagina bleeding, burning, dyspareunia, dysuria, flank pain, frequency, hematuria, incontinence, pain, , vagina discharge, urgency, others Neurological: denies: dizziness, fainting, headache, left sided numbness, left sided weakness, numbness, paresthesia, pre-existing deficit, right sided numbness, right sided weakness, seizure, speech problems, tingling, tremors, weakness, others Musculoskeletal: reports: back pain; denies: gout, joint pain, joint swelling, muscle pain, muscle stiffness, neck pain, others Integumetry: denies: bruises, change in color, change in hair/nails, dryness, laceration, lesions, lumps, rash, wounds, others Allergic/Immunocompromised: denies: Difficulty Healing, Frequent Infections, Hives, Itching, others Hematologic/Lymphatic: denies: anemia, blood clots, easy bleeding, easy bruising, swollen glands, others Endocrine: denies: excessive hunger, excessive sweating, excessive thirst, excessive urination, flushing, intolerance to cold, intolerance to heat, unexplained weight gain, unexplained weight loss, others Psychiatric: denies: anxiety, bipolar disorder, depression, hopeless, panic disorder, schizophrenia, sleepless, suicidal, others All Other Systems: Reviewed and Negative Physical Exam General Appearance: Mild Distress, Normal HEENT: Normal ENT Inspection, Pharynx Normal, TMs Normal Neck: Full Range of Motion, Non-Tender, Normal, Normal Inspection Respiratory: Chest Non-Tender, Lungs Clear, No Accessory Muscle Use, No Respiratory Distress, Normal Breath Sounds Cardiovascular: No Edema, No JVD, No Murmur, No Gallop, Normal Peripheral Pulses, Regular Rate/Rhythm Breast Exam: Deferred Gastrointestinal: No Organomegaly, Non Tender, No Pulsatile Mass, Normal Bowel Sounds, Soft Genitalia: Deferred Pelvic: Deferred Rectal: Deferred Extremities: No calf tenderness, Normal capillary refill, Normal inspection, Normal range of motion, Non-tender, No pedal edema Musculoskeletal : Location: Bilateral Extremity Location: Back (No gross abnormality, no step-offs, left paraspinal back pain, no TTP, neurovascular by sensitivity intact, no ecchymosis, no signs of trauma) Apperance: Normal Neurologic: Alert, crm marketing analyst II-XII nml as Tested, No Motor Deficits, Normal Affect, Normal Mood, No Sensory Deficits Cerebellar Function: Normal Reflexes: Normal Skin: Dry, Normal Color, Warm Lymphatic: No Adenopathy Was a procedure done? Was a procedure done?: No Differential Diagnosis Kidney stone (Female): , Appendicitis, Bowel obstruction, Cholelithiasis, Ectopic , Musculoskeletal pain, Ovarian torsion, Pancreatitis, Urinary obstruction, Urolithiasis Urinary Problem (Female): Appendicitis, Aortic dissection, Ectopic , Impaction, Intrauterine , Pyelonephritis, Urinary retention, Urolithiasis, UTI, Vaginitis X-Ray, Labs, Meds, VS Vital Signs Date Time Temp Pulse Resp B/P (MAP) Pulse Ox O2 Delivery O2 Flow Rate FiO2 7/29/25 14:32 98.2 76 16 134/52 99 98.2 Lab Test 12/09/24 15:08 Range/Units White Blood Count 9.3 4.4-10.8 10^3/uL Red Blood Count 4.73 4.0-5.20 10^6/uL Hemoglobin 13.0 12.2-16.2 g/dL Hematocrit 37.9 36.0-46.0 % Mean Corpuscular Volume 80.1 80.0-100.0 fL Mean Corpuscular Hemoglobin 27.5 L 28.0-32.0 pg Mean Corpuscular Hemoglobin Concent 34.3 32.0-36.0 g/dL Red Cell Distribution Width 14.0 11.8-14.3 % Platelet Count 348 140-450 10^3/uL Mean Platelet Volume 8.1 6.9-10.8 fL Neutrophils (%) (Auto) 58.1 37.0-80.0 % Lymphocytes (%) (Auto) 31.9 10.0-50.0 % Monocytes (%) (Auto) 5.0 0.0-12.0 % Eosinophils (%) (Auto) 4.0 0.0-7.0 % Basophils (%) (Auto) 1.0 0.0-2.0 % Neutrophils # (Auto) 5.4 1.6-8.6 10 ^3/uL Lymphocytes # (Auto) 3.0 0.4-5.4 10 ^3/uL Monocytes # (Auto) 0.5 0-1.3 10 ^3/uL Eosinophils # (Auto) 0.4 0-0.8 10 ^3/uL Basophils # (Auto) 0.1 0-0.2 10 ^3/uL Nucleated Red Blood Cells 0.0 % Urine Color Yellow Yellow Urine Clarity Clear Clear Urine pH 5.5 5.0-9.0 Urine Specific [place] 1.037 H 1.001-1.035 Urine Protein Trace H Negative Urine Ketones Negative Negative Urine Blood 2+ H Negative /uL Urine Nitrite Negative Negative Urine Bilirubin Negative Negative Urine Urobilinogen Normal Negative mg/dL Urine Leukocyte Esterase 1+ Negative /uL Urine RBC 4 0 - 4 /hpf Urine Microscopic WBC 7 H 0-5 /HPF Urine Squamous Epithelial Cells Few <5 /hpf Urine Bacteria None seen None Seen /hpf Urine Mucus Few None Seen Urine Glucose Normal Normal mg/dL Urine Test Negative Negative Sodium Level 140 136-145 mmol/L Potassium Level 3.9 3.5-5.1 mmol/L Chloride Level 106 98-107 mmol/L Carbon Dioxide Level 27 20-31 mmol/L Anion Gap 7 5-15 Blood Urea Nitrogen 11 9-23 mg/dL Creatinine 0.68 0.550-1.02 mg/dL Glomerular Filtration Rate Calc 122 >90 mL/min BUN/Creatinine Ratio 16.2 10.0-20.0 Serum Glucose 90 74-106 mg/dL Calcium Level 9.1 8.7-10.4 mg/dL Lipase 30 12-53 U/L X-Ray, Labs, Meds, VS Comment 29-year-old female presents to the ED for the chief complaint of lumbosacral paraspinal back pain with the associated nausea vomiting and dizziness. Patient arrives alert and oriented, ABC's intact, afebrile, vital signs stable, saturating well in room air CBC was ordered to exclude anemia, blood loss, or infection. BMP was ordered to exclude electrolyte abnormalities, renal failure, dehydration, hyperglycemia Urinalysis was ordered to rule out UTI or hematuria, . Lipase test was ordered: Kidney ultrasound was ordered to rule out any renal failure, kidney stones: Diagnostic imaging ordered by me and results interpreted by radiology :Impression: No sonographic evidence for hydronephrosis. Labs in the ED showed UA and CBC were unremarkable, test was negative. Patient was given:_. Tolerated medications with no adverse reaction. On reevaluation, patient had symptomatic improvement. Patient is stable for discharge at this time. External notes reviewed. Test results and diagnostic imaging interpreted. All diagnostic findings, discharge care, education and instructions provided Follow-up with PCP in 2 to 3 days Patient verbalized understanding and agreed to treatment plan Vital signs stable, afebrile, no acute distress noted Patient ambulatory with strong steady gait Advised to return precautions for any new or worsening symptoms, return to ER immediately for re-evaluation Patient is aware that the purpose of this visit was for an acute medical emergency requiring emergent stabilization. Chronic conditions, including malignancies have not been ruled out. Patient is instructed to follow up with PCP as directed and discharge instructions for continued care and workup. If unable to arrange follow-up, patient is to return to the emergency department for reassessment. Patient (parent or legal guardian if applicable) was given verbal and written discharge instructions and acknowledges understanding. Additional MDM Review of External, Non-ED records: External records reviewed. Discussion with independent historian (EMS, family) history obtained from the patient/parents (if applicable) at bedside Chronic conditions affecting care: None Social determinants of health affecting care: None Time of 1ST Reevaluation: 15:13 Reevaluation 1ST: Unchanged Patient Education/Counseling: Diagnosis, Treatment, Need For Follow Up Family Education/Counseling: No Family Present SEPSIS Sepsis Screen Date sepsis recognized/suspect: Dec 09, 2024 Time Sepsis recognized/suspect: 1430 Recent Procedure: No On Antibiotic Therapy: No Respiratory Rate >20: No Heart Rate >90: No Temp<36 C (96.8 F) or >38.3 C: No SBP <90 or MAP <65 mmHG: No New Acute Mental Status Change: No Is the patient on CPAP, BIPAP,: No Physician Orders Kidney (12/09/24 15:02) Ketorolac Injection (Toradol Injection) (12/09/24 16:30) Ondansetron Po (Zofran Po) (12/09/24 16:30) Methylprednisolone Sod Succ (Solu Medrol (12/09/24 16:30) Vital Signs Date Time Temp Pulse Resp B/P (MAP) Pulse Ox O2 Delivery O2 Flow Rate FiO2 12/09/24 14:32 98.2 76 16 134/52 99 98.2 Laboratory Tests Test 12/09/24 15:08 White Blood Count 9.3 10^3/uL (4.4-10.8) Departure 1 Departure Time of Disposition: 16:24 Impression: Primary Impression: Lumbar back pain Disposition: 01 HOME / SELF CARE / HOMELESS Condition: Stable e-Prescriptions Ondansetron HCl (Ondansetron) 4 Mg Tab 4 MG PO Q8HP PRN for 2 Days, #6 TAB 0 Refills Prov: DALLAS BLOUNT SENIOR BACK END JAVA DEVELOPER 12/09/24 Lidocaine (LIDODERM 5% TOPICAL PATCH) 1 Patch Ph 1 PATCH TOP DAILY for 30 Days, #30 PATCH 0 Refills Prov: DALLAS BLOUNT SENIOR BACK END JAVA DEVELOPER 12/09/24 Methocarbamol (Methocarbamol) 500 Mg Tab 500 MG PO Q8HP PRN for 10 Days, #30 TAB 0 Refills Prov: DALLAS BLOUNT NP 12/09/24 Ibuprofen (Ibuprofen) 600 Mg Tab 1 TAB PO TID for 10 Days, #30 TAB 0 Refills Prov: DALLAS BLOUNT SENIOR BACK END JAVA DEVELOPER 12/09/24 Critical Care Note Critical Care Time?: No Stability Stability form required: No Heart Score Heart Score: Heart Score Response (Comments) Value History N/A 0 EKG N/A 0 Age N/A 0 Risk Factors N/A 0 Troponin N/A 0 Total 0 I personally scribed for BETHANY BLOUNTAndre Guillen SENIOR BACK END JAVA DEVELOPER ([email or web address]) on 12/09/24 at 14:46. Electronically submitted by Antione Hayward ([email or web address]). I personally scribed for MINEDALLAS F SENIOR BACK END JAVA DEVELOPER ([email or web address]) on 12/09/24 at 15:03. Electronically submitted by Antione Hayward ([email or web address]). I personally scribed for DALLAS BLOUNT F SENIOR BACK END JAVA DEVELOPER ([email or web address]) on 12/09/24 at 15:05. Electronically submitted by Antione Hayward ([email or web address]). I personally scribed for DALLAS BLOUNT SENIOR BACK END JAVA DEVELOPER ([email or web address]) on 12/09/24 at 16:08. Electronically submitted by Antione Hayward ([email or web address]). I personally scribed for DALLAS BLOUNT SENIOR BACK END JAVA DEVELOPER ([email or web address]) on 12/09/24 at 16:33. Electronically submitted by Antione Hayward ([email or web address]). DALLAS BLOUNT SENIOR BACK END JAVA DEVELOPER Dec 09, 2024 14:46
[2024-12-09 15:29] LABS: Hematocrit 37.9 % (36.0-46.0); Hemoglobin 13.0 g/dL (12.2-16.2); Mean Corpuscular Hemoglobin 27.5 pg (28.0-32.0); Mean Corpuscular Volume 80.1 fL (80.0-100.0); Nucleated Red Blood Cells % 0.0 %
[2024-12-09 15:33] LABS: Chloride 106 mmol/L (98-107); Potassium 3.9 mmol/L (3.5-5.1); Sodium 140 mmol/L (136-145)
[2024-12-09 15:34] LABS: Anion Gap 7 (5-15); Carbon Dioxide 27 mmol/L (20-31)
[2024-12-09 15:35] LABS: Calcium 9.1 mg/dL (8.7-10.4)
[2024-12-09 15:39] LABS: BUN/Creatinine Ratio 16.2 (10.0-20.0); Blood Urea Nitrogen 11 mg/dL (9-23); Glucose 90 mg/dL (74-106)
[2024-12-09 15:40] LABS: Lipase 30 U/L (12-53)
--- NOTE | 2024-12-09 15:53 | DVH ---
RENAL ULTRASOUND History: R/o stones Comparison: None Technique: Multiple real-time sonographic images of the kidney and bladder were obtained in conjuncti on with Doppler imaging. Findings: The right kidney measures 9.4 cm and demonstrates no evidence of hydronephrosis, perinephric fluid co llection, or shadowing stone. The left kidney measures 9.4 cm and demonstrates no evidence of hydronephrosis, perinephric fluid col lection, or shadowing stone. Urinary bladder: Decompressed by Early catheter. Impression: No sonographic evidence for hydronephrosis.
[2024-12-09 16:11] LABS: Urine Protein, UAD TRACE (Negative)
[2024-12-09] MEDS ORDERED: IBUP-1454 PO (16:25)
[2024-12-09] MEDS ORDERED: LIDO5DIS21 TOP (16:25)
[2024-12-09] MEDS ORDERED: METH-1181 PO (16:25)
[2024-12-09] MEDS ORDERED: ONDA-155 PO (16:25)
[2024-12-09] MEDS: KETOROLAC TROMETH 60MG/2ML VIAL IM ONE (16:49)
[2024-12-09] MEDS: methylPREDNISolone SOD SUCC 125 MG/2 ML VL IM ONE (16:50)
[2024-12-09] MEDS: ONDANSETRON ODT 4 MG TAB PO ONE (16:50)
[2024-12-09 16:58] VITALS: BP 143/71; PULSE 67; RESP 16; TEMP 98.8; O2SAT 97
== END 2024-12-09 17:13 | disposition home or self-care (01) ==
LOC: ER 14:30
DX: M54.50 Low back pain, unspecified (principal); R42 Dizziness and giddiness; R11.2 Nausea with vomiting, unspecified; Z88.2 Allergy status to sulfonamides
CPT/HCPCS: 36415; 76775; 80048; 81001; 81025; 83690; 85025; 96372; 99285; J1885; Q0162

== ENCOUNTER 2025-01-30 17:33 | Emergency (ER) | payer MEDICAID ==
[~2025-01-30] VITALS: Ht 160 cm; Wt 99.1 kg
[~2025-01-30 17:33] MED LIST changes: +IBUP-1454 PO; +LIDO5DIS21 TOP; +METH-1181 PO; +ONDA-155 PO
[2025-01-30 18:46] VITALS: TEMP 98.2
[2025-01-30] MEDS: SODIUM CHLORIDE 0.9% 1,000 ML IV ONE (19:18)
[2025-01-30] MEDS: ONDANSETRON HCL 4 MG/2 ML VIAL IV ONE ×2 (19:22→21:57)
[2025-01-30] MEDS: KETOROLAC TROMETH 30 MG/ML 1ML VIAL IV ONE (19:22)
[2025-01-30 19:29] LABS: Hematocrit 40.7 % (36.0-46.0); Hemoglobin 13.8 g/dL (12.2-16.2); Mean Corpuscular Hemoglobin 27.0 pg (28.0-32.0); Mean Corpuscular Volume 79.9 fL (80.0-100.0); Nucleated Red Blood Cells % 0.0 %
[2025-01-30 19:34] LABS: COVID19 ANTIGEN SOFIA FIA NEGATIVE (NEGATIVE)
[2025-01-30 19:47] LABS: Alanine Aminotransferase 22 U/L (7-40); Albumin 4.6 g/dL (3.2-4.8); Alkaline Phosphatase 76 U/L (46-116); Anion Gap 8 (5-15); BUN/Creatinine Ratio 10.0 (10.0-20.0); Calcium 9.5 mg/dL (8.7-10.4); Carbon Dioxide 27 mmol/L (20-31); Chloride 103 mmol/L (98-107); Glucose 80 mg/dL (74-106); Potassium 4.1 mmol/L (3.5-5.1); Sodium 138 mmol/L (136-145)
[2025-01-30 19:48] LABS: Bilirubin, Total 0.3 mg/dL (0.2-1.0); Blood Urea Nitrogen 8 mg/dL (9-23); Total Protein 8.4 g/dL (5.7-8.2)
[2025-01-30 20:00] VITALS: O2SAT 98
[2025-01-30 20:20] LABS: Urine Protein, UAD Negative (Negative)
[2025-01-30] MEDS ORDERED: NABU-74 PO (20:57)
[2025-01-30] MEDS ORDERED: ZOFR4T PO (20:57)
--- NOTE | 2025-01-30 20:59 | ED.PDOC ---
GI ASSESSMENT HPI Comments 30-year-old female PRESENTED TO THE ER WITH C.C OF N/V AND GEN WEAK FOR 4 DAYS. PATIENT REPORTS CHILLS BUT NO RECORDED FEVERS. SHE NOTES NO DIARRHEA REPORTS NO RECENT TRAVEL OR KNOWN ILL CONTACTS DOES NOTE VAGUE HEADACHE. DENIES COUGH, DIFFICULTY BREATHING, SHORTNESS BREATH, CHEST PAIN, DIARRHEA, VISION CHANGES, SLURRED SPEECH, NUMBNESS OR WEAKNESS. Chief Complaint: Nausea/Vomiting Time Seen by MD: 18:35 Primary Care Provider: NONE Reviewed Notes: Nurses Notes, Medications, Allergies Allergies: Coded Allergies: Sulfamethoxazole w/Trimethoprim (Verified Allergy, Unknown, 11/15/24) Home Meds Active Scripts Nabumetone (Nabumetone) 750 Mg Tab, 1 TAB PO BID PRN for 5 Days, #10 TAB Prov:PATTIE VELAZQUEZ [facility] 01/30/25 Ondansetron Odt 4MG Tab (ZOFRAN PO) 4 Mg Tb, 4 MG PO TID PRN for 5 Days, #15 TAB ODT TAB-DISSOLVE IN MOUTH, THEN SWALLOW Prov:PATTIE VELAZQUEZP 01/30/25 Ondansetron HCl (Ondansetron) 4 Mg Tab, 4 MG PO Q8HP PRN for 2 Days, #6 TAB 0 Refills Prov:DALLAS BLOUNT NP 12/09/24 Lidocaine (LIDODERM 5% TOPICAL PATCH) 1 Patch Ph, 1 PATCH TOP DAILY for 30 Days, #30 PATCH 0 Refills Prov:DALLAS BLOUNT PIANO PROFESSOR 12/09/24 Methocarbamol (Methocarbamol) 500 Mg Tab, 500 MG PO Q8HP PRN for 10 Days, #30 TAB 0 Refills Prov:DALLAS BLOUNT NP 12/09/24 Ibuprofen (Ibuprofen) 600 Mg Tab, 1 TAB PO TID for 10 Days, #30 TAB 0 Refills Prov:DALLAS BLOUNT NP 12/09/24 Metoclopramide Hcl (Reglan) 10 Mg Tab, 10 MG PO Q8HP PRN, #15 TAB Prov:ELENI FELIZ PAC 11/16/24 Ibuprofen Micronized (Ibuprofen) 800 Mg Tab, 800 MG PO Q8HP PRN, #20 TAB Prov:ELENI FELIZ PAC 11/16/24 Nitrofurantoin Monohydrate Mac (Macrobid) 100 Mg Cap, 100 MG PO BID for 7 Days, #14 CAP Prov:CLAUDIA DE SOUZA 11/05/24 Mode of Arrival: Ambulatory Past Medical History PAST MEDICAL HISTORY: Denies Surgical History: Denies all surgeries REHABILITATION ATTENDANT History: No Pertinent REHABILITATION ATTENDANT History Family History Family History: Reviewed,noncontributory to illness Social History Smoker: Non-Smoker Alcohol: Denies ETOH Use Drugs: Denies Drug Use Lives In: Home All Other Systems: Reviewed and Negative (SEE HPI) Physical Exam General Appearance: No Apparent Distress, Normal HEENT: Normal ENT Inspection, Pharyngeal Erythema Neck: Full Range of Motion, Non-Tender Respiratory: Lungs Clear, No Respiratory Distress, Normal Breath Sounds Cardiovascular: No Edema, No JVD, No Murmur, No Gallop, Normal Peripheral Pulses, Regular Rate/Rhythm Breast Exam: Deferred Gastrointestinal: No Organomegaly, Non Tender, No Pulsatile Mass, Normal Bowel Sounds, Soft Genitalia: Deferred Pelvic: Deferred Rectal: Deferred Extremities: Normal capillary refill, Normal range of motion, Non-tender, No pedal edema Musculoskeletal : Apperance: Normal Neurologic: Alert, No Motor Deficits, Normal Affect, Normal Mood, No Sensory Deficits Cerebellar Function: Normal Reflexes: NOT DONE Skin: Dry, Normal Color, Warm Lymphatic: No Adenopathy Was a procedure done? Was a procedure done?: No GI differential Dx Differential Diagnosis: Gastritis/PUD, Gastroenteritis, UTI, Urolithiasis, Dehy dration, Diabetes/ DKA, Electrolyte Imbalance, Food Poisoning, , Bacterial, Viral X-Ray, Labs, Meds, VS Vital Signs Date Time Temp Pulse Resp B/P (MAP) Pulse Ox O2 Delivery O2 Flow Rate FiO2 01/30/25 22:35 72 18 112/78 01/30/25 22:05 75 18 128/76 01/30/25 20:00 98 Room Air* 0 21 01/30/25 20:00 76 18 110/88 (95) 98 01/30/25 18:46 98.2 83 16 132/84 (100) 100 98.2 01/30/25 17:38 98.4 86 16 131/72 98 98.4 Lab Test 01/30/25 19:13 01/30/25 00:00 Range/Units White Blood Count 10.4 4.4-10.8 10^3/uL Red Blood Count 5.10 4.0-5.20 10^6/uL Hemoglobin 13.8 12.2-16.2 g/dL Hematocrit 40.7 36.0-46.0 % Mean Corpuscular Volume 79.9 L 80.0-100.0 fL Mean Corpuscular Hemoglobin 27.0 L 28.0-32.0 pg Mean Corpuscular Hemoglobin Concent 33.8 32.0-36.0 g/dL Red Cell Distribution Width 14.1 11.8-14.3 % Platelet Count 357 140-450 10^3/uL Mean Platelet Volume 8.2 6.9-10.8 fL Neutrophils (%) (Auto) 68.3 37.0-80.0 % Lymphocytes (%) (Auto) 24.0 10.0-50.0 % Monocytes (%) (Auto) 4.7 0.0-12.0 % Eosinophils (%) (Auto) 2.8 0.0-7.0 % Basophils (%) (Auto) 0.2 0.0-2.0 % Neutrophils # (Auto) 7.1 1.6-8.6 10 ^3/uL Lymphocytes # (Auto) 2.5 0.4-5.4 10 ^3/uL Monocytes # (Auto) 0.5 0-1.3 10 ^3/uL Eosinophils # (Auto) 0.3 0-0.8 10 ^3/uL Basophils # (Auto) 0 0-0.2 10 ^3/uL Nucleated Red Blood Cells 0.0 % Sodium Level 138 136-145 mmol/L Potassium Level 4.1 3.5-5.1 mmol/L Chloride Level 103 98-107 mmol/L Carbon Dioxide Level 27 20-31 mmol/L Anion Gap 8 5-15 Blood Urea Nitrogen 8 L 9-23 mg/dL Creatinine 0.80 0.550-1.02 mg/dL Glomerular Filtration Rate Calc 102 >90 mL/min BUN/Creatinine Ratio 10.0 10.0-20.0 Serum Glucose 80 74-106 mg/dL Calcium Level 9.5 8.7-10.4 mg/dL Total Bilirubin 0.3 0.2-1.0 mg/dL Aspartate Amino Transferase (AST) 21 13-40 U/L Alanine Aminotransferase (ALT) 22 7-40 U/L Alkaline Phosphatase 76 46-116 U/L Total Protein 8.4 H 5.7-8.2 g/dL Albumin 4.6 3.2-4.8 g/dL Urine Color Light-yellow Yellow Urine Clarity Clear Clear Urine pH 6.5 5.0-9.0 Urine Specific [place] 1.019 1.001-1.035 Urine Protein Negative Negative Urine Ketones Negative Negative Urine Blood Negative Negative /uL Urine Nitrite Negative Negative Urine Bilirubin Negative Negative Urine Urobilinogen Normal Negative mg/dL Urine Leukocyte Esterase Negative Negative /uL Urine RBC 1 0 - 4 /hpf Urine Microscopic WBC 1 0-5 /HPF Urine Squamous Epithelial Cells Mod <5 /hpf Urine Bacteria None seen None Seen /hpf Urine Glucose Normal Normal mg/dL Urine Test Negative Negative SARS-CoV-2 Antigen (Rapid) Negative NEGATIVE Current Medications Medications (Trade) Dose Ordered Sig/Arlene Route Start Time Stop Time Status Last Admin Sodium Chloride 1,000 ml @ 1,000 mls/hr Q1H ONCE IV 01/30/25 19:15 01/30/25 20:14 DC 01/30/25 19:18 Ondansetron HCl (Zofran) 4 mg ONCE ONCE IV 01/30/25 19:15 01/30/25 19:16 DC 01/30/25 19:22 Ketorolac Tromethamine (Toradol Injection) 30 mg ONCE ONCE IV 01/30/25 19:15 01/30/25 19:16 DC 01/30/25 19:22 Morphine Sulfate 1 mg ONCE ONCE IV 01/30/25 21:30 01/30/25 21:31 DC 01/30/25 22:05 Ondansetron HCl (Zofran) 4 mg ONCE ONCE IV 01/30/25 21:45 01/30/25 21:46 DC 01/30/25 21:57 X-Ray, Labs, Meds, VS Comment CBC, CMP, and UA without abnormal findings. COVID-19 swab negative, negative. Patient was given 1 L bolus of normal saline, Toradol 30 mg IV, Zofran 8 mg IV push, and morphine 1 mg IV push reports improvement in pain and function requesting discharge at this time. Script trial of Zofran advised take medication as prescribed side effects discussed. Advised to follow up with her PCP in 2-3 days as necessary ER return precautions given patient indicates understanding and agrees with discharge plan of care. Time of 1ST Reevaluation: 18:35 Reevaluation 1ST: Unchanged Time of 2ND Reevaluation: 20:56 Reevaluation 2ND: Improved Patient Education/Counseling: Diagnosis, Treatment, Need For Follow Up Family Education/Counseling: Diagnosis, Treatment, Need For Follow Up SEPSIS Sepsis Screen Date sepsis recognized/suspect: Jan 30, 2025 Time Sepsis recognized/suspect: 1739 Recent Procedure: No On Antibiotic Therapy: No Respiratory Rate >20: No Heart Rate >90: No Temp<36 C (96.8 F) or >38.3 C: No SBP <90 or MAP <65 mmHG: No New Acute Mental Status Change: No Is the patient on CPAP, BIPAP,: No Vital Signs Date Time Temp Pulse Resp B/P (MAP) Pulse Ox O2 Delivery O2 Flow Rate FiO2 01/30/25 22:35 72 18 112/78 01/30/25 22:05 75 18 128/76 01/30/25 20:00 98 Room Air* 0 21 01/30/25 20:00 76 18 110/88 (95) 98 01/30/25 18:46 98.2 83 16 132/84 (100) 100 98.2 01/30/25 17:38 98.4 86 16 131/72 98 98.4 Laboratory Tests Test 01/30/25 19:13 White Blood Count 10.4 10^3/uL (4.4-10.8) Medications Medications Dose Ordered Sig/Arlene Route Start Time Stop Time Status Last Admin Dose Admin Ketorolac Tromethamine 30 mg ONCE ONCE IV 01/30/25 19:15 01/30/25 19:16 DC 01/30/25 19:22 Morphine Sulfate 1 mg ONCE ONCE IV 01/30/25 21:30 01/30/25 21:31 DC 01/30/25 22:05 Ondansetron HCl 4 mg ONCE ONCE IV 01/30/25 19:15 01/30/25 19:16 DC 01/30/25 19:22 Ondansetron HCl 4 mg ONCE ONCE IV 01/30/25 21:45 01/30/25 21:46 DC 01/30/25 21:57 Sodium Chloride 1,000 ml @ 1,000 mls/hr Q1H ONCE IV 01/30/25 19:15 01/30/25 20:14 DC 01/30/25 19:18 Departure 1 Departure Time of Disposition: 20:56 Impression: Primary Impression: Viral syndrome Disposition: HOME / SELF CARE / HOMELESS Condition: Stable e-Prescriptions Nabumetone (Nabumetone) 750 Mg Tab 1 TAB PO BID PRN for 5 Days, #10 TAB Prov: PATTIE VELAZQUEZP 01/30/25 Ondansetron Odt 4MG Tab (ZOFRAN PO) 4 Mg Tb 4 MG PO TID PRN for 5 Days, #15 TAB ODT TAB-DISSOLVE IN MOUTH, THEN SWALLOW Prov: PATTIE VELAZQUEZ [facility] 01/30/25 Discharged With: Self Critical Care Note Critical Care Time?: No Stability Stability form required: No PATTIE VELAZQUEZ [facility] Jan 30, 2025 20:59
[2025-01-30] MEDS ORDERED: HYDROcodone-ACET 5/325MG TAB PO ONE (21:15)
[2025-01-30] MEDS ORDERED: METOCLOPRAMIDE HCL 5MG/ml INJ 2ml VIAL IV ONE (21:30)
[2025-01-30] MEDS: MORPHINE SULFATE INJ 2 MG/ml SYRG IV ONE (22:05)
[2025-01-30 22:35] VITALS: BP 112/78; PULSE 72; RESP 18
== END 2025-01-30 22:44 | disposition home or self-care (01) ==
LOC: ER 17:33
DX: B34.9 Viral infection, unspecified (principal); Z20.822 Contact with and (suspected) exposure to COVID-19; Z88.1 Allergy status to other antibiotic agents; Z88.2 Allergy status to sulfonamides
CPT/HCPCS: 36415; 80053; 81001; 81025; 85025; 87426; 96361; 96374; 96375; 96376; 99285; J1885; J2270; J2405; J7030

== ENCOUNTER 2025-02-13 17:31 | Emergency (ER) | payer MEDICAID ==
[~2025-02-13] VITALS: Ht 160 cm; Wt 97.7 kg
--- NOTE | 2025-02-13 19:18 | DVH ---
CLINICAL INDICATION: s/p fall injury TECHNIQUE: 3 x-ray views of the left ankle. Comparison: None FINDINGS/IMPRESSION: There is no evidence of acute fracture or dislocation. Mild soft tissue swelling around the ankle.
--- NOTE | 2025-02-13 19:19 | DVH ---
INDICATION: s/p fall injury TECHNIQUE: 3 views of the lumbar spine were obtained. COMPARISON: XY LUMBAR SPINE 3 VIEW on DOS: 08/01/24 FINDINGS: There are no acute fractures or subluxations. Status post cholecystectomy. IMPRESSION: 1. No acute fracture or subluxation.
--- NOTE | 2025-02-13 19:22 | DVH ---
CLINICAL INDICATION: s/p fall injury TECHNIQUE: 3 radiographic views of the right knee were obtained. Comparison: XR KNEE COMPLETE LT on DOS: 12/20/24, XY R KNEE 3V XRAY on DOS: 08/01/24 FINDINGS/IMPRESSION: There is no evidence of acute fracture or dislocation. Bony protuberance of the tibial tuberosity. The visualized joint space is well maintained. The alignment is anatomical. 5 mm density within the soft tissue anterior to the proximal tibia which may represent Nonspecific so ft tissue Calcification .
--- NOTE | 2025-02-13 19:42 | ED.PDOC ---
History of Present Illness HPI Comments 30 y/o obese F presents with c/c of left ankle, right knee, and lower back pain s/p mechanical fall and injury. Patient endorses on slipping on water, earlier, and falling and injuring herself. Pain is a 6/10 in severity and is described as pressure-like and stabbing in quality. No reported lost of consciousness. No modifiers. No endorsement of any pertinent medical or surgical history. Denial of any numbness, weakness, deformity, swelling, or further associated symptoms. Chief Complaint: Fall Injury Time Seen by MD: 19:00 Primary Care Provider: NONE Reviewed Notes: Nurses Notes, Medications, Allergies Allergies: Coded Allergies: Ibuprofen (Verified Allergy, Unknown, 02/13/25) Sulfamethoxazole w/Trimethoprim (Verified Allergy, Unknown, 11/15/24) Home Meds Active Scripts Ondansetron HCl (Ondansetron) 4 Mg Tab, 4 MG PO Q8HP PRN for 2 Days, #6 TAB 0 Refills Prov:DALLAS BLOUNT RIPENING ROOM OPERATOR 12/09/24 Lidocaine (LIDODERM 5% TOPICAL PATCH) 1 Patch Ph, 1 PATCH TOP DAILY for 30 Days, #30 PATCH 0 Refills Prov:DALLAS BLOUNT RIPENING ROOM OPERATOR 12/09/24 Methocarbamol (Methocarbamol) 500 Mg Tab, 500 MG PO Q8HP PRN for 10 Days, #30 TAB 0 Refills Prov:DALLAS BLOUNT RIPENING ROOM OPERATOR 12/09/24 Ibuprofen (Ibuprofen) 600 Mg Tab, 1 TAB PO TID for 10 Days, #30 TAB 0 Refills Prov:DALLAS BLOUNT RIPENING ROOM OPERATOR 12/09/24 Metoclopramide Hcl (Reglan) 10 Mg Tab, 10 MG PO Q8HP PRN, #15 TAB Prov:ELENI FELIZ PAC 11/16/24 Ibuprofen Micronized (Ibuprofen) 800 Mg Tab, 800 MG PO Q8HP PRN, #20 TAB Prov:ELENI FELIZ PAC 11/16/24 Nitrofurantoin Monohydrate Mac (Macrobid) 100 Mg Cap, 100 MG PO BID for 7 Days, #14 CAP Prov:CLAUDIA DE SOUZA INTERPRETER DEAF 11/05/24 Information Source: Patient Mode of Arrival: Ambulatory Severity: Moderate Timing: Hours Duration: Since onset Prehospital treatment: None Past Medical History PAST MEDICAL HISTORY: Denies Surgical History: Denies all surgeries ROASTER OPERATOR History: No Pertinent ROASTER OPERATOR History Family History Family History: Reviewed,noncontributory to illness Social History Smoker: Non-Smoker Alcohol: Denies ETOH Use Drugs: Denies Drug Use Lives In: Home All Other Systems: Reviewed and Negative (Comprehensive review of systems are n egative unless stated in HPI) Physical Exam General Appearance: No Apparent Distress, Normal HEENT: Pharynx Normal Neck: Full Range of Motion, Non-Tender Respiratory: Lungs Clear, No Respiratory Distress, Normal Breath Sounds Cardiovascular: No Murmur, Normal Peripheral Pulses, Regular Rate/Rhythm Breast Exam: Deferred Gastrointestinal: Non Tender, Soft Genitalia: Deferred Pelvic: Deferred Rectal: Deferred Extremities: Normal capillary refill, Normal range of motion Musculoskeletal : Location: Left Extremity Location: Ankle (moderate lateral edema. +CSM ) Apperance: Normal Neurologic: Alert, No Motor Deficits, Normal Affect, Normal Mood, No Sensory Deficits Cerebellar Function: Normal Reflexes: NOT DONE Skin: Dry, Normal Color, Warm Lymphatic: No Adenopathy Was a procedure done? Was a procedure done?: No Differential Dx Considerations may include: fracture, contusions, sprain, among others X-Ray, Labs, Meds, VS Vital Signs Date Time Temp Pulse Resp B/P (MAP) Pulse Ox O2 Delivery O2 Flow Rate FiO2 02/13/25 20:30 98 16 98 Room Air 02/13/25 20:30 98.3 81 16 111/64 (80) 98 98.3 02/13/25 17:44 98.5 98 16 126/68 95 98.5 [place] [address] Ph: [phone] DIAGNOSTIC IMAGING Diagnostic Imaging Report : [id number] Signed PATIENT: SCOTTY DAVIS ACCT: [id number] UNIT: [id number] : 1995 LOC: ER ROOM / BED: / AGE / SEX: 30 / F ADM STATUS: REG ER SERVICE 182 ORDERING PHYSICIAN: PATTIE VELAZQUEZ PROCEDURE(s): LUMB2 - LUMBAR SPINE 3 VIEW REASON: s/p fall injury ORDER NUMBER(s): [id number], ACCESSION NUMBER(s): [id number] INDICATION: s/p fall injury TECHNIQUE: 3 views of the lumbar spine were obtained. COMPARISON: XY LUMBAR SPINE 3 VIEW on DOS: 08/01/24 FINDINGS: There are no acute fractures or subluxations. Status post cholecystectomy. IMPRESSION: 1. No acute fracture or subluxation. ATED BY: NANCY OCAMPO MD DICTATED DATE/TIME: 02/13/251915 SIGNED BY: NANCY OCAMPO MD SIGNED DATE/TIME: 02/13/251915 CC: [place] [address] Ph: [phone] DIAGNOSTIC IMAGING Diagnostic Imaging Report : [id number] Signed PATIENT: SCOTTY DAVIS ACCT: [id number] UNIT: [id number] : 1995 LOC: ER ROOM / BED: / AGE / SEX: 30 / F ADM STATUS: REG ER SERVICE 26 ORDERING PHYSICIAN: PATTIE VELAZQUEZ PROCEDURE(s): RKN3 - R KNEE 3V XRAY REASON: s/p fall injury ORDER NUMBER(s): [id number], ACCESSION NUMBER(s): [id number] CLINICAL INDICATION: s/p fall injury TECHNIQUE: 3 radiographic views of the right knee were obtained. Comparison: XR KNEE COMPLETE LT on DOS: 12/20/24, XY R KNEE 3V XRAY on DOS: 08/01/24 FINDINGS/IMPRESSION: There is no evidence of acute fracture or dislocation. Bony protuberance of the tibial tuberosity. The visualized joint space is well maintained. The alignment is anatomical. 5 mm density within the soft tissue anterior to the proximal tibia which may represent Nonspecific soft tissue Calcification . ATED BY: JESS RAJAN DO DICTATED DATE/TIME: 02/13/251918 SIGNED BY: JESS RAJAN DO SIGNED DATE/TIME: 02/13/251918 CC: [place] [address] Ph: [phone] DIAGNOSTIC IMAGING Diagnostic Imaging Report : [id number] Signed PATIENT: SCOTTY DAVIS ACCT: [id number] UNIT: [id number] : 1995 LOC: ER ROOM / BED: / AGE / SEX: 30 / F ADM STATUS: REG ER SERVICE 26 ORDERING PHYSICIAN: PATTIE VELAZQUEZ PROCEDURE(s): LANKL - L ANKLE 3 VIEW REASON: s/p fall injury ORDER NUMBER(s): [id number], ACCESSION NUMBER(s): [id number] CLINICAL INDICATION: s/p fall injury TECHNIQUE: 3 x-ray views of the left ankle. Comparison: None FINDINGS/IMPRESSION: There is no evidence of acute fracture or dislocation. Mild soft tissue swelling around the ankle. ATED BY: NANCY OCAMPO MD DICTATED DATE/TIME: 02/13/251915 SIGNED BY: NANCY OCAMPO MD SIGNED DATE/TIME: 02/13/251915 CC: Time of 1ST Reevaluation: 19:30 Reevaluation 1ST: Unchanged Time of 2ND Reevaluation: 20:19 Reevaluation 2ND: Improved Patient Education/Counseling: Diagnosis, Treatment, Need For Follow Up Family Education/Counseling: No Family Present SEPSIS Sepsis Screen Date sepsis recognized/suspect: Feb 13, 2025 Time Sepsis recognized/suspect: 1744 Recent Procedure: No On Antibiotic Therapy: No Respiratory Rate >20: No Heart Rate >90: No Temp<36 C (96.8 F) or >38.3 C: No SBP <90 or MAP <65 mmHG: No New Acute Mental Status Change: No Is the patient on CPAP, BIPAP,: No Physician Orders L Ankle 3 View (02/13/25 18:27) R Knee 3v Xray (02/13/25 18:27) Lumbar Spine 3 View (02/13/25 18:27) Vital Signs Date Time Temp Pulse Resp B/P (MAP) Pulse Ox O2 Delivery O2 Flow Rate FiO2 02/13/25 20:30 98 16 98 Room Air 02/13/25 20:30 98.3 81 16 111/64 (80) 98 98.3 02/13/25 17:44 98.5 98 16 126/68 95 98.5 Departure 1 Departure Time of Disposition: 20:18 Impression: Primary Impression: Ankle sprain Qualified Codes: S93.401A - Sprain of unspecified ligament of right ankle, initial encounter Additional Impressions: Low back strain Qualified Codes: S39.012A - Strain of muscle, fascia and tendon of lower back, initial encounter Contusion of right knee Qualified Codes: S80.01XA - Contusion of right knee, initial encounter Disposition: HOME / SELF CARE / HOMELESS Condition: Stable Discharged With: Self Critical Care Note Critical Care Time?: No Stability Stability form required: No Heart Score Heart Score: Heart Score Response (Comments) Value History N/A 0 EKG N/A 0 Age N/A 0 Risk Factors N/A 0 Troponin N/A 0 Total 0 I personally scribed for ER ([email or web address]) on 02/13/25 at 19:42. Electronically submitted by Min Calabrese ([email or web address]). ER Feb 13, 2025 19:42 PATTIE VELAZQUEZ [facility] Feb 13, 2025 20:19
[2025-02-13 20:30] VITALS: BP 111/64; PULSE 98; RESP 16; TEMP 98.3; O2SAT 98
== END 2025-02-13 20:37 | disposition home or self-care (01) ==
LOC: ER 17:34
DX: S39.012A Strain of muscle, fascia and tendon of lower back, initial encounter (principal); S93.491A Sprain of other ligament of right ankle, initial encounter; S80.01XA Contusion of right knee, initial encounter; S30.0XXA Contusion of lower back and pelvis, initial encounter; Z88.2 Allergy status to sulfonamides; Z88.6 Allergy status to analgesic agent; W01.0XXA Fall on same level from slipping, tripping and stumbling without subsequent striking against object, initial encounter; Y93.89 Activity, other specified; Y92.89 Other specified places as the place of occurrence of the external cause; Y99.8 Other external cause status
CPT/HCPCS: 72100; 73562; 73610